=== PATIENT | male | born 1995 | race Caucasian/White ===

== ENCOUNTER 2020-11-14 13:47 | Emergency (ER) | payer OTHER ==
[~2020-11-14] VITALS: Ht 170.2 cm; Wt 68.2 kg
[~2020-11-14 13:47] MED LIST: NO MEDS
[2020-11-14] MEDS ORDERED: LIDOCAINE 2% VISCOUS 15 ML SOLUTION UDCUP TP ONE (14:30)
[2020-11-14] MEDS ORDERED: PERTUSS(ACELL),DIPH,TET VAC/PF 0.5 ML SYRINGE IM. ONE (14:30)
[2020-11-14 15:23] VITALS: BP 110/62
[2020-11-14] MEDS ORDERED: LIDOCAINE/PF 1% 2 ML VIAL IM ONE (15:45)
[2020-11-14] MEDS ORDERED: CefTRIAXone SODIUM 1 GM/VIAL IM ONE (15:45)
[2020-11-14] MEDS ORDERED: AZITHROMYCIN 500 MG TABLET PO ONE (15:45)
== END 2020-11-14 16:07 | disposition home or self-care (01) ==
LOC: EMS 13:53
DX: S91.011A Laceration without foreign body, right ankle, initial encounter (principal); A64 Unspecified sexually transmitted disease; F17.210 Nicotine dependence, cigarettes, uncomplicated; F12.90 Cannabis use, unspecified, uncomplicated; F19.90 Other psychoactive substance use, unspecified, uncomplicated; W25.XXXA Contact with sharp glass, initial encounter; Y93.89 Activity, other specified; Y92.89 Other specified places as the place of occurrence of the external cause; Y99.8 Other external cause status
CPT/HCPCS: 73610; 90471; 90715; 96372; 99284; A9575; J0696; J3490

== ENCOUNTER 2021-12-23 21:04 | Emergency (ER) | payer OTHER ==
[~2021-12-23] VITALS: Ht 170.2 cm; Wt 68.2 kg
[2021-12-23 21:08] VITALS: BP 125/79
[2021-12-24] MEDS ORDERED: LIDOCAINE/PF 1% 2 ML VIAL IM ONE (01:00)
[2021-12-24] MEDS ORDERED: PERTUSS(ACELL),DIPH,TET VAC/PF 0.5 ML SYRINGE IM. ONE (01:00)
[2021-12-24] MEDS ORDERED: BACITRACIN 28 GM OINTMENT TP ONE (01:00)
[2021-12-24] MEDS ORDERED: DOXYCYCLINE HYCLATE 100 MG TABLET PO ONE (01:00)
[2021-12-24] MEDS ORDERED: CefTRIAXone SODIUM 1 GM/VIAL IM ONE (01:00)
[2021-12-24] MEDS ORDERED: DOXY-354 PO (01:29)
== END 2021-12-24 01:59 | disposition home or self-care (01) ==
LOC: EMS 21:11
DX: S31.21XA Laceration without foreign body of penis, initial encounter (principal); T23.001A Burn of unspecified degree of right hand, unspecified site, initial encounter; A64 Unspecified sexually transmitted disease; F10.20 Alcohol dependence, uncomplicated; F17.210 Nicotine dependence, cigarettes, uncomplicated; F12.90 Cannabis use, unspecified, uncomplicated; F15.10 Other stimulant abuse, uncomplicated; X58.XXXA Exposure to other specified factors, initial encounter; Y93.89 Activity, other specified; Y92.89 Other specified places as the place of occurrence of the external cause; Y99.8 Other external cause status
CPT/HCPCS: 99284; 87491; 87591; 90715; 90471; 96372; J0696; J3490

== ENCOUNTER 2022-01-10 20:11 | Emergency (ER) | payer OTHER ==
[~2022-01-10] VITALS: Ht 170.2 cm; Wt 65.9 kg
[~2022-01-10 20:11] MED LIST changes: +DOXY-354 PO; -NO MEDS
[2022-01-10 20:17] VITALS: BP 140/86
== END 2022-01-10 20:45 | disposition left against medical advice (07) ==
LOC: EMS 20:12
DX: Z53.21 Procedure and treatment not carried out due to patient leaving prior to being seen by health care provider (principal)

== ENCOUNTER 2024-04-27 21:13 | Inpatient (IN) | payer OTHER ==
[~2024-04-27] VITALS: Ht 170.2 cm; Wt 70.5 kg
[2024-04-27 22:48] LABS: BASOPHILS % (AUTO) 0.6 % (0.0-2.0); EOSINOPHILS % (AUTO) 4.8 % (1.0-6.0); HEMATOCRIT 45.7 % (41-53); LYMPHOCYTES # (AUTO) 2.1 K/uL (1.0-4.8); LYMPHOCYTES % (AUTO) 20.8 % (22.0-44.0); MEAN CORPUSCULAR HEMOGLOBIN 22.5 pg (26.0-34.0); MEAN CORPUSCULAR HGB CONC 30.7 G/dL (31.0-37.0); MEAN CORPUSCULAR VOLUME 73 fL (80-100); MONOCYTES # (AUTO) 0.6 K/uL (0.1-1.0); MONOCYTES % (AUTO) 6.2 % (2.0-9.0); NEUTROPHILS # (AUTO) 6.9 K/uL (1.8-7.7); NEUTROPHILS % (AUTO) 67.6 % (40.0-70.0); PLATELET COUNT (AUTO) 351 K/uL (150-450); RED BLOOD CELL COUNT(AUTO) 6.23 MIL/uL (4.50-5.90); RED CELL DISTRIBUTION WIDTH 15.1 % (11.5-14.5); WHITE BLOOD COUNT (AUTO) 10.3 K/uL (4.5-11.0)
[2024-04-27 22:58] LABS: ANION GAP 4 mmol/L (8-16); CALCIUM, TOTAL 8.9 mg/dL (8.8-10.5); CARBON DIOXIDE 35 mmol/L (22-29); CHLORIDE 101 mmol/L (98-107); CREATININE 1.22 mg/dL (0.60-1.30); GLOMERULAR FILTR. RATE CALC > 60 mL/min (>60); GLUCOSE,RANDOM 100 mg/dL (70-110); POTASSIUM 4.6 mmol/L (3.5-5.1); SODIUM SERUM 140 mmol/L (136-145); UREA NITROGEN, BLOOD 22 mg/dL (7-18)
[2024-04-27 23:12] LABS: RBC MORPHOLOGY COMMENT ABNORMAL RBC MORPH
[2024-04-27] MEDS ORDERED: 0.9% SODIUM CHLORIDE 10 ML SYRINGE IVP ONE (23:44)
[2024-04-27] MEDS ORDERED: SODIUM CHLORIDE 0.9% 100 ML ONE (23:45)
[2024-04-27] MEDS ORDERED: IOHEXOL 300 MG/ML 100 ML VIAL ONE (23:45)
[2024-04-28] MEDS: SODIUM CHLORIDE 0.9% 1,000 ML IV ONE (00:11)
[2024-04-28] MEDS: MORPHINE SULFATE 2 MG/ML SYRINGE IVP ONE (00:11)
[2024-04-28 00:34] LABS: APPEARANCE,URINE CLEAR (CLEAR); BILIRUBIN,URINE NEGATIVE (NEGATIVE); COLOR,URINE YELLOW (YELLOW); GLUCOSE, URINE (UA) NEGATIVE (NEGATIVE); KETONES,URINE NEGATIVE (NEGATIVE); LEUKOCYTE ESTERASE ,URINE NEGATIVE (NEGATIVE); NITRATE,URINE NEGATIVE (NEGATIVE); OCCULT BLOOD,URINE NEGATIVE (NEGATIVE); PH,URINE 5.5 (5.0-8.0); PROTEIN,URINE TRACE mg/dL (NEGATIVE); SPECIFIC GRAVITIY, URINE 1.029 (1.003-1.030); UROBILINOGEN,URINE <=1.0 mg/dL (<=1.0)
[2024-04-28] MEDS: PIPERACILLIN/TAZO 3.375 GM/D5W 50 ML IV ONE (00:45)
[2024-04-28 00:46] LABS: LACTIC ACID 0.4 mmol/L (0.4-2.0)
[2024-04-28] MEDS ORDERED: ACETAMINOPHEN 325 MG TABLET PO PRN (01:00)
[2024-04-28] MEDS ORDERED: MORPHINE SULFATE 2 MG/ML SYRINGE IVP PRN ×2 (01:00→13:00)
[2024-04-28] MEDS ORDERED: ZOLPIDEM TARTRATE 5 MG TABLET PO PRN (01:00)
[2024-04-28] MEDS ORDERED: MAGNESIUM HYDROXIDE SUSPENSION 30 ML UDCUP PO PRN ×2 (01:00→12:45)
[2024-04-28] MEDS ORDERED: ONDANSETRON HCL 4 MG/2 ML VIAL IVP PRN (01:00)
[2024-04-28] MEDS ORDERED: SODIUM CHLORIDE 0.9% 500 ML IV ONE (04:39)
[2024-04-28 05:19] VITALS: BP 114/60; PULSE 84; RESP 18; TEMP 98.2; O2SAT 98
[2024-04-28] MEDS: PIPERACILLIN/TAZO 3.375 GM/D5W 50 ML IV SCH (06:14)
[2024-04-28] MEDS ORDERED: BUPR1TAB45 SL (06:43)
[2024-04-28] MEDS ORDERED: BUPR1TAB46 SL (06:43)
[2024-04-28] MEDS: FAMOTIDINE 20 MG TABLET PO SCH (08:53)
[2024-04-28] MEDS: DOCUSATE SODIUM 100 MG CAPSULE PO SCH (08:53)
[2024-04-28 09:10] VITALS: BP 105/45; PULSE 85; RESP 18; TEMP 98.1; O2SAT 96
[2024-04-28] MEDS: OxyCODONE HCL/ACETAMINOPHEN 5-325 MG TABLET PO PRN (12:27)
[2024-04-28] MEDS: SENNOSIDES 8.6 MG TABLET PO SCH (13:11)
[2024-04-28 13:18] LABS: PH,URINE DRUG SCREEN 5.5 (5.0-8.0)
[2024-04-28 13:26] LABS: ALCOHOL, URINE DRUG SCREEN NEGATIVE (NEGATIVE); AMPHET/METH SCREEN,URINE POSITIVE (NEGATIVE); BARBITURATE SCREEN, URINE NEGATIVE (NEGATIVE); BENZODIAZEPINES SCREEN,URINE NEGATIVE (NEGATIVE); CANNABINOID SCREEN,URINE NEGATIVE (NEGATIVE); COCAINE SCREEN,URINE NEGATIVE (NEGATIVE); METHADONE SCREEN, URINE NEGATIVE (NEGATIVE); OPIATE SCREEN,URINE NEGATIVE (NEGATIVE); PHENCYCLIDINE SCREEN,URINE NEGATIVE (NEGATIVE)
[2024-04-28 16:05] VITALS: BP 109/53; PULSE 73; RESP 17; TEMP 98.1; O2SAT 97
[2024-04-28 19:47] VITALS: BP 109/49; PULSE 71; RESP 18; TEMP 98; O2SAT 100
[2024-04-29 05:09] VITALS: BP 105/56; PULSE 62; RESP 18; TEMP 98; O2SAT 98
[2024-04-29 08:11] VITALS: BP 101/71; PULSE 57; RESP 18; TEMP 98; O2SAT 100
[2024-04-29] MEDS ORDERED: DOCU-385 PO (09:41)
[2024-04-29] MEDS ORDERED: METR500 PO (09:41)
[2024-04-29] MEDS ORDERED: LEVO-72 PO (09:41)
== END 2024-04-29 14:15 | disposition home or self-care (01) | DRG 254 ==
LOC: EMS 21:13 → EDH 04-28 01:19 → 4E 04-28 03:38
PROVIDERS: ADMIT Internal Medicine; ATTEND Internal Medicine
DX: K62.89 Other specified diseases of anus and rectum (principal); K57.31 Diverticulosis of large intestine without perforation or abscess with bleeding; F15.10 Other stimulant abuse, uncomplicated; K59.09 Other constipation; K64.4 Residual hemorrhoidal skin tags; K64.5 Perianal venous thrombosis; Z87.891 Personal history of nicotine dependence
CPT/HCPCS: 74018; 74177; 80048; 80307; 81003; 83605; 85025; 87040; 99285; G0378; J2270; J2543; J7030; J7040; J7050; Q9967; 36415-L1; 36415-TC